=== PATIENT | male | born 1950 | race Asian ===

== ENCOUNTER 2024-02-25 09:48 | Emergency (ER) | payer OTHER, SELFPAY ==
[2024-02-25 10:07] VITALS: BP 131/80; PULSE 68; RESP 18; TEMP 36.6; O2SAT 99; BMI 21.9
--- NOTE | 2024-02-25 10:13 | ED_ITS ---
HPI - General Adult General Chief complaint: Extremity Pain/Injury, Upper Stated complaint: LT hand injury at work Time Seen by Provider: 02/25/24 09:53 Limitations: language barrier History of Present Illness HPI narrative: Pt here for eval of L hand soreness, tightness/ swelling for few days. Pt recalls injuring finger while lifting at work, but initially had no symptoms. Yesterday, swelling and soreness with movement became much worse. Leaves tomorrow on a trip. Did take some amoxicillin Pt had on hand from [place], in case it was an infection. No pain while fingers/ hand is at rest. Very sore with movement. 73-year-old man presenting to the emergency department with concern of hand pain of his left hand. 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 He describes a hyperflexion of the right 3rd finger somehow while carrying something heavy; I clarify that indeed hyperflexion of the 3rd finger is what he is describing. It is hard to do his job today now because of increased pain. Initial pain seems to have been more than a week ago with a small swelling in the area where it is currently swollen. Does not describe any drainage but that initial ?pimple? or bump has resolved. Was seen in the interim in what sounds like a well check visit and laboratory work was done but not available at this time. He did take some amoxicillin I believe in the last 24 hours thinking that there might be an infection. Over last 24 hours his swollen quickly and become much more painful. He has trouble flexing or extending it particular the 3rd finger due to pain. Later recounts a history of gout apparently diagnosed but typically affects his left great toe area Related Data Home Medications ?Medication ?Instructions ?Recorded ?Confirmed No Known Home Medications 02/25/24 02/25/24 Allergies Allergy/AdvReac Type Severity Reaction Status Date / Time No Known Drug Allergies Allergy Verified 02/25/24 10:05 Review of Systems Status of ROS: Reports: 6 or more systems reviewed and unremarkable except as noted in History and below [facility] Social History Smoking Status: Never smoker How often do you have a drink containing alcohol: never AUDIT-C Alcohol total score: 0 Non-prescribed substance use: denies use Exam Narrative: Exam Narrative: Calm. NAD. Favoring his left hand. There is mild calor mild erythema and more firm swelling between in the 2nd and 3rd MCP joints of the left hand. Quite tender to palpation here. Winces with flexion or extension of the 3rd MCP in particular but more once passes 70? or so of flexion. The dorsum of the hand is most notable where it is swollen. Not sore to palpation on the palmar surface. There is some soreness also elicited with flexion extension of the 2nd MCP joint. No evidence of a bite. No evidence otherwise of trauma. Const: Vital Signs, click to edit/add: Vital Signs - 24 hr 02/25/24 10:07 Temperature 97.8 F Pulse Rate [Pulse Oximeter] 68 Respiratory Rate 18 Blood Pressure [Ri ght Upper Arm] 131/80 Pulse Oximetry 99 Oxygen Delivery Me thod Room Air Documenting provider has reviewed patient's vital signs: yes Course Vital Signs Vital signs: Initial Vital Signs Temperature 97.8 F 02/25/24 10:07 Temperature Source Temporal Artery Scan 02/25/24 10:07 Pulse Rate 68 02/25/24 10:07 Pulse Rhythm Regular 02/25/24 10:07 Respiratory Rate 18 02/25/24 10:07 Blood Pressure 131/80 02/25/24 10:07 Blood Pressure Mean 97 02/25/24 10:07 Blood Pressure Position Sitting 02/25/24 10:07 Pulse Oximetry 99 02/25/24 10:07 Oxygen Delivery Method Room Air 02/25/24 10:07 Vital Signs Temperature 97.8 F 02/25/24 10:07 Pulse Rate 68 02/25/24 10:07 Respiratory Rate 18 02/25/24 10:07 Blood Pressure 131/80 02/25/24 10:07 Pulse Oximetry 99 02/25/24 10:07 Oxygen Delivery Method Room Air 02/25/24 10:07 Temperature 97.8 F 02/25/24 12:16 Pulse Rate 68 02/25/24 12:16 Respiratory Rate 18 02/25/24 12:16 Blood Pressure 131/80 02/25/24 12:16 Pulse Oximetry 99 02/25/24 10:07 Oxygen Delivery Method Room Air 02/25/24 10:07 Medical Decision Making MDM Narrative Medical decision making narrative: Differential includes gout, osteoarthritic flare, tenosynovitis, avulsion fracture, cellulitis. Unusual to be a capsulitis. There is not appear to have been a break in the skin. Most of the affected area appears to be on the extensor surface of the hand though he describes an injury occurring with what would have been a flexor stress. This seems more inflammatory than infectious. Labs were done will try to obtained that information from last week. Otherwise would do an x-ray at this point. Revealed later is that there is a history of gouty arthritis. I do review labs from 02/19/2024. Normal CBC. Uric acid is elevated at 8 and rheumatoid factor is also slightly elevated. X-ray of the right hand focus 2nd and 3rd MCP joints reviewed by me does not appear to show any acute abnormality, avulsion fracture. Degenerative changes mild are noted. Radiology over-read as below HAND PAIN, 2ND AND 3RD MCP Technique: Three views of the left hand. Comparison: None. Findings: No acute displaced fracture or malalignment. Moderate degenerative changes of the radiocarpal joint. Possible small chronic ulnar styloid process fracture. Possible small chronic triquetral fracture seen on the lateral view. Mild degenerative changes of the 1st carpometacarpal joint. Impression: No acute displaced fracture or malalignment. Mild chronic deformities as described above. Moderate degenerative changes of the radiocarpal joint. On re-examine does not clearly involve the tendons itself. I have proposed anti-inflammatory like prednisone instead of only NSAID or antibiotic. Maybe a splint as well. Later in questioning had been very active with his hands day prior to much worsening. It is not clearly isolated to the joint nor to the tendons. Daughter who is serving as sales & service associate and somewhat directing concerns is still quite concerned about need for antibiotics, infection I think. I do check with Orthopedics on a couple of occasions and they are finally able to come by and have a look. They are in agreement with initial assessment and plan also recommending temporary splinting. I did place a splint over the dorsum of the hand, slightly curved isolating the 3rd finger in particular the MCP joint. See patient discharge plan for further discussion Lab Data Lab results reviewed: Yes I reviewed the patient's lab results Discharge Plan Discharge Clinical Impression: Inflammation of hand joint Patient Disposition: Home w/ Parent or Adult Condition: Stable Additional Instructions: (I am sorry. the translation did not work very well) Wear this splint most of the day over the next 7-10 days but do some gentle flexion and extension of the joint throughout the day. This should help your hand rest and decrease inflammation. Elevate for comfort. Can take ibuprofen or acetaminophen for more discomfort. I am prescribing prednisone from [facility]. Take 60 mg today and then 40 mg daily for 5 more days. This might take a couple of days to settle down. Follow-up in 7-10 days if not improved. Be seen sooner if you have marked increase in swelling, heat, pain, thickening of the skin, fever. Take this disc of images with you if needed for follow up. Prescriptions: No Action No Known Home Medications Follow Up/Referrals: Provider,Not a Local [Primary Care Provider] - Stand Alone Forms: [facility] Info Instructions
--- NOTE | 2024-02-25 10:25 | CRLHL7_ITS ---
For Patients: As a result of the Cures Act, medical imaging exams and procedure reports are released immediately into your electronic medical record. You may view this report before your referring provider. If you have questions, please contact your health care provider. Indication: HAND PAIN, 2ND AND 3RD MCP Technique: Three views of the left hand. Comparison: None. Findings: No acute displaced fracture or malalignment. Moderate degenerative changes of the radiocarpal joint. Possible small chronic ulnar styloid process fracture. Possible small chronic triquetral fracture seen on the lateral view. Mild degenerative changes of the 1st carpometacarpal joint. Impression: No acute displaced fracture or malalignment. Mild chronic deformities as described above. Moderate degenerative changes of the radiocarpal joint. Dictated by Matt Platt MD @ 02/25/2024 10:45:10 AM (Electronically Signed)
[2024-02-25 12:16] VITALS: BP 131/80; PULSE 68; RESP 18; TEMP 36.6
== END 2024-02-25 12:21 | disposition home or self-care (01) ==
PROVIDERS: Emergency Provider Family Medicine; Visit Provider Family Medicine
DX: M25.542 Pain in joints of left hand (principal)
CPT/HCPCS: 73130; 99283; 99284